=== PATIENT | male | born 1990 ===

== ENCOUNTER 2016-12-23 12:50 | Emergency (ER) | payer OTHER ==
[2016-12-23 13:03] VITALS: TEMP 98.2
[2016-12-23 13:08] VITALS: BMI 28.7
[2016-12-23] MEDS ORDERED: Morphine 2 mg/ml ISec IVP STA (13:35)
[2016-12-23] MEDS ORDERED: Sodium Chloride 0.9% 1,000 ML IV STA (13:35)
[2016-12-23] MEDS ORDERED: Iohexol 240 (50 ml) ONE (13:40)
--- NOTE | 2016-12-23 13:54 | ED PDOC ---
Arrival/HPI - General Chief Complaint: Abdominal Pain Time Seen by Provider: 12/23/16 13:04 Historian: Patient - History of Present Illness Narrative History of Present Illness (Text): 12/23/16 13:04 Jarek Hernandez is a 26 year old male complaining of epigastric abdominal pain since last night. Patient states that he also experiences associated nausea. Patient denies any diarrhea, constipation, urinary symptoms, or any other complaint at this time. Time/Duration: 24 hours Symptom Onset: Gradual Symptom Course: Unchanged Severity Level: Mild Activities at Onset: Light Context: Home Past Medical History - Provider Review Nursing Documentation Reviewed: Yes - Infectious Disease Hx of Infectious Diseases: None - Tetanus Immunization Tetanus Immunization: Unknown - Past Medical History Past Medical History: No Previous - Pulmonary Hx Bronchitis: Yes - Musculoskeletal/Rheumatological Hx Falls: No - Gastrointestinal Hx Gastritis: Yes - Psychiatric Hx Depression: No Hx Emotional Abuse: No Hx Physical Abuse: No Hx Substance Use: Yes - Past Surgical History Past Surgical History: No Previous - Anesthesia Hx Anesthesia: No - Suicidal Assessment Feels Threatened In Home Enviroment: No Family/Social History - Physician Review Nursing Documentation Reviewed: Yes Family/Social History: No Known Family HX Smoking Status: Light Smoker < 10 Cigarettes Daily Hx Alcohol Use: Yes Hx Substance Use: Yes Substance used: marijuana Hx Substance Use Treatment: Yes (DAILY) Allergies/Home Meds Allergies/Adverse Reactions: Allergies No Known Allergies Allergy (Verified 08/26/14 16:29) Review of Systems - Review of Systems Constitutional: absent: Fevers, Night Sweats Eyes: absent: Vision Changes ENT: absent: Hearing Changes Respiratory: absent: SOB, Cough Cardiovascular: absent: Chest Pain Gastrointestinal: Abdominal Pain, Nausea Genitourinary Male: absent: Urinary Output Changes Musculoskeletal: absent: Back Pain, Neck Pain Skin: absent: Rash, Pruritis Neurological: absent: Headache, Dizziness Endocrine: absent: Polyuria Hemo/Lymphatic: absent: Easy Bleeding Psychiatric: absent: Depression Physical Exam Vital Signs Reviewed: Yes Vital Signs Temp Pulse Resp BP Pulse Ox 12/23/16 16:38 75 18 132/64 98 12/23/16 15:50 79 18 134/69 98 12/23/16 13:02 98.2 F 85 18 136/75 98 Temperature: Afebrile Blood Pressure: Normal Pulse: Regular Respiratory Rate: Normal Appearance: Positive for: Well-Appearing, Non-Toxic, Comfortable Pain Distress: None Mental Status: Positive for: Alert and Oriented X 3 - Systems Exam Head: Present: Atraumatic, Normocephalic Pupils: Present: PERRL Conjunctiva: Present: Normal Mouth: Present: Moist Mucous Membranes Pharnyx: Present: Normal. No: ERYTHEMA, EXUDATE Neck: Present: Normal Range of Motion Respiratory/Chest: Present: Clear to Auscultation, Good Air Exchange. No: Respiratory Distress, Accessory Muscle Use Cardiovascular: Present: Regular Rate and Rhythm, Normal S1, S2. No: Murmurs Abdomen: Present: Tenderness (tenderness to palpation to Right Quadrant ), Normal Bowel Sounds. No: Distention Back: Present: Normal Inspection Upper Extremity: Present: Normal Inspection. No: Cyanosis, Edema Lower Extremity: Present: Normal Inspection. No: Edema Neurological: Present: GCS=15, CN II-XII Intact, Speech Normal Skin: Present: Warm, Dry, Normal Color. No: Rashes Psychiatric: Present: Alert, Oriented x 3, Normal Insight, Normal Concentration Medical Decision Making ED Course and Treatment: 12/23/16 13:10 Impression: 26 year old male complaining of abdominal painPatien since last night. Differential Diagnosis include but are not limited to: Gastritis vs. Appendicitis vs. enteritis vs. less likely cholecystitis Plan: -- Abdomen and Pelvis CT with PO & IV Contrast -- Urinalysis -- Labs -- Bentyl, Pepcid, Morphine, and IV Fluids -- Reassess and disposition Prior Visits: Notes and results from previous visits were reviewed. Patient last seen in ED on 08/26/14 for dysuria for 2 days. Patient was discharged home. Progress Notes: 12/23/16 16:[address] with PO & IV Contrast: Creator : Pamela Sher MD FINDINGS: LOWER THORAX:No visible consolidation, pleural effusion, or pneumothorax. LIVER:Mild periportal edema. Hepatomegaly. GALLBLADDER AND BILE DUCTS:Unremarkable. PANCREAS:Unremarkable. SPLEEN:Unremarkable. ADRENALS:Unremarkable. KIDNEYS AND URETERS:The kidneys enhance symmetrically. No hydronephrosis or obstructing renal calculus. BLADDER:The urinary bladder appears unremarkable. REPRODUCTIVE:Unremarkable. APPENDIX:The appendix appears within normal limits of caliber. No secondary signs of acute appendicitis. BOWEL:The stomach is nondistended. The bowel loops appear within normal limits of caliber without evidence of intestinal obstruction. PERITONEUM:No significant free fluid. No definite free air. LYMPH NODES:No bulky lymphadenopathy identified. VASCULATURE:No aortic aneurysm. BONES:No acute osseous abnormality is detected. OTHER FINDINGS:None. IMPRESSION: Mild periportal edema. Hepatomegaly. The appendix appears within normal limits of caliber. No secondary signs of acute appendicitis. 12/23/16 17:44 Patient with noted history. Vitals and labs are unremarkable. CT findings with mild periportal edema with hepatomegaly but patient is nontender in the RUQ. Currently he says his pain is minimal and still has some mild nausea but overall feels much better. Exam now with nontender abdomen. Given periportal edema, patient with no evidence of infection, hepatitis, or cause for hepatic congestion, will have the patient follow up in the GI clinic and place on zantac. Ok for d/c and follow up in GI clinic. - Lab Interpretations Lab Results: 12/23/16 14:45 12/23/16 14:45 Lab Results 12/23/16 14:45: Sodium 133, Potassium 3.8, Chloride 100, Carbon Dioxide 30, Anion Gap 7 L, BUN 12, Creatinine 0.7, Est GFR ( Amer) > 60, Est GFR (Non -Af Amer) > 60, Random Glucose 80, Calcium 9.2, Total Bilirubin 0.6, AST 23, ALT 30, Alkaline Phosphatase 65, Total Protein 7.2, Albumin 4.1, Globulin 3.1, Albumin/Globulin Ratio 1.3, Lipase 50 12/23/16 14:45: Urine Color Yellow, Urine Appearance Clear, Urine pH 7.5, Ur Specific [place] 1.025, Urine Protein Negative, Urine Glucose (UA) Negative, Urine Ketones Negative, Urine Blood Negative, Urine Nitrate Negative, Urine Bilirubin Negative, Urine Urobilinogen 0.2, Ur Leukocyte Esterase Negative 12/23/16 14:45: PT 11.0, INR 1.02, APTT 31.2 H 12/23/16 14:45: WBC 6.7, RBC 4.40, Hgb 13.0 L, Hct 39.5 L, MCV 89.8, MCH 29.5, MCHC 32.9, RDW 12.5, Plt Count 198, MPV 10.8, Gran % 77.6 H, Lymph % (Auto) 10.3 L, [place] % (Auto) 11.0 H, Eos % (Auto) 1.0 L, Baso % (Auto) 0.1, Gran # 5.20 , Lymph # 0.7 L, [place] # 0.7 H, Eos # 0.1, Baso # 0.01 I have reviewed the lab results: Yes - RAD Interpretation Radiology Orders: 12/23/16 13:35 ABD PELVIS PO & IV CONTRAST [CT] Stat - Medication Orders Current Medication Orders: Discontinued Medications Dicyclomine HCl (Bentyl) 10 mg PO ONCE STA Stop: 12/23/16 13:36 Last Admin: 12/23/16 14:57 Dose: 10 mg Famotidine (Pepcid) 20 mg IVP STAT STA Stop: 12/23/16 13:36 Last Admin: 12/23/16 14:57 Dose: 20 mg Sodium Chloride (Sodium Chloride 0.9%) 1,000 mls @ 999 mls/hr IV .Q1H1M STA Stop: 12/23/16 14:35 Last Admin: 12/23/16 14:55 Dose: 999 mls/hr Iohexol (Omnipaque 240 (50 Ml)) Confirm Administered Dose 50 ml .ROUTE .STK-MED ONE Stop: 12/23/16 13:41 Iohexol (Omnipaque 350 100 Ml) Confirm Administered Dose 350 mg .ROUTE .STK-MED ONE Stop: 12/23/16 15:37 Morphine Sulfate (Morphine) 2 mg IVP STAT STA Stop: 12/23/16 13:36 Last Admin: 12/23/16 14:57 Dose: 2 mg - Scribe Statement The provider has reviewed the documentation as recorded by the Heike Hess Provider Scribe Attestation: All medical record entries made by the Helenibtucker were at my direction and personally dictated by me. I have reviewed the chart and agree that the record accurately reflects my personal performance of the history, physical exam, medical decision making, and the department course for this patient. I have also personally directed, reviewed, and agree with the discharge instructions and disposition. Disposition/Present on Arrival - Present on Arrival Any Indicators Present on Arrival: No History of DVT/PE: No History of Uncontrolled Diabetes: No Urinary Catheter: No History of Decub. Ulcer: No History Surgical Site Infection Following: None - Disposition Have Diagnosis and Disposition been Completed?: Yes Diagnosis: Abdominal pain Disposition: HOME/ ROUTINE Disposition Time: 17:50 Patient Plan: Discharge Condition: GOOD Discharge Instructions (ExitCare): Abdominal Pain (ED), Diet for Ulcers and Gastritis (ED) Additional Instructions: Given "periportal edema" on the CT scan, make sure you follow up in the GI clinic (see form given to you). Recommend bland diet with less caffeine intake adn less greasy/spicy food, and take the medication as prescribed. Follow up as noted. Return to the emergency department if any new concerning symptoms. Prescriptions: Ranitidine HCl [Zantac] 1 tab PO BID #30 tablet Referrals: formerly [facility] [Outside] - Follow up with primary [facility] [Outside] - Follow up with primary
[2016-12-23 14:58] LABS: ADD MANUAL DIFF? NO
[2016-12-23 15:07] LABS: PH,URINE 7.5 (4.7-8.0); URINE BILIRUBIN NEGATIVE (NEGATIVE); URINE BLOOD NEGATIVE (NEGATIVE); URINE GLUCOSE (UA) NEGATIVE (NEGATIVE); URINE KETONE NEGATIVE (NEGATIVE); URINE LEUKOCYTE ESTERASE NEGATIVE Leu/uL (NEGATIVE); URINE PROTEIN NEGATIVE mg/dL (<30 mg/dL); URINE UROBILINOGEN 0.2 E.U./dL (<1 E.U./dL)
[2016-12-23 15:18] LABS: ALB/GLOB RATIO 1.3 (1.1-1.8); ALKALINE PHOSPHATASE 65 U/L (38-133); ALT/SGPT 30 U/L (7-56); AST/SGOT 23 U/L (15-59); BILIRUBIN,TOTAL 0.6 mg/dL (0.2-1.3); BLOOD UREA NITROGEN 12 mg/dL (7-21); CALCIUM 9.2 mg/dL (8.4-10.5); CARBON DIOXIDE 30 mmol/L (21-33); CHLORIDE 100 mmol/L (98-107); GFR AFRICAN-AMERICAN > 60; GLUCOSE,RANDOM 80 mg/dL (70-110); LIPASE 50 U/L (23-300); POTASSIUM 3.8 mmol/L (3.6-5.0); SODIUM 133 mmol/L (132-148); TOTAL PROTEIN 7.2 g/dL (5.8-8.3); URINE APPEARANCE CLEAR (CLEAR); URINE COLOR YELLOW (YELLOW)
[2016-12-23 15:26] LABS: INR 1.02 (0.93-1.08); PARTIAL THROMBOPLASTIN TIME 31.2 Seconds (23.7-30.8)
[2016-12-23] MEDS ORDERED: Iohexol 350 MG/100 ML VIAL ONE (15:36)
[2016-12-23 16:12] LABS: HEMATOCRIT 39.5 % (42.0-52.0); MEAN CELL VOLUME 89.8 fL (80.0-105.0); WHITE BLOOD COUNT 6.7 10^3/ul (4.5-11.0)
[2016-12-23 16:13] LABS: BASO # 0.01 K/mm3 (0.0-2.0); BASO % 0.1 % (0.0-3.0); EOS # 0.1 (0.0-0.7); GRAN % 77.6 % (50.0-68.0); LYMPH # 0.7 (1.2-3.4); LYMPH % 10.3 % (22.0-35.0); MEAN CORPUSCULAR HEMOGLOBIN 29.5 pg (25.0-35.0); MEAN CORPUSCULAR HGB CONC 32.9 g/dl (31.0-37.0); MEAN PLATELET VOLUME 10.8 fl (7.0-11.0); MONO # 0.7 (0.1-0.6); PLATELET COUNT 198 10^3/uL (120.0-450.0); RED CELL DISTRIBUTION WIDTH 12.5 % (11.5-14.5)
--- NOTE | 2016-12-23 16:35 | CT ---
PROCEDURE: CT Abdomen and Pelvis with oral and IV contrast. HISTORY: abd pain - ttp RLQ COMPARISON: CT abdomen and pelvis with contrast performed 04/25/13 TECHNIQUE: Contiguous axial images of the abdomen and pelvis. Oral and IV contrast was administered. Coronal and Sagittal reformats generated and reviewed. Contrast dose: 100 mL Omnipaque 350 Radiation dose: Total exam DLP = 863.62 MGy-cm. This CT exam was performed using one or more of the following dose reduction techniques: Automated exposure control, adjustment of the mA and/or kV according to patient size, and/or use of iterative reconstruction technique. FINDINGS: LOWER THORAX: No visible consolidation, pleural effusion, or pneumothorax. LIVER: Mild periportal edema. Hepatomegaly. GALLBLADDER AND BILE DUCTS: Unremarkable. PANCREAS: Unremarkable. SPLEEN: Unremarkable. ADRENALS: Unremarkable. KIDNEYS AND URETERS: The kidneys enhance symmetrically. No hydronephrosis or obstructing renal calculus. BLADDER: The urinary bladder appears unremarkable. REPRODUCTIVE: Unremarkable. APPENDIX: The appendix appears within normal limits of caliber. No secondary signs of acute appendicitis. BOWEL: The stomach is nondistended. The bowel loops appear within normal limits of caliber without evidence of intestinal obstruction. PERITONEUM: No significant free fluid. No definite free air. LYMPH NODES: No bulky lymphadenopathy identified. VASCULATURE: No aortic aneurysm. BONES: No acute osseous abnormality is detected. OTHER FINDINGS: None. IMPRESSION: Mild periportal edema. Hepatomegaly. The appendix appears within normal limits of caliber. No secondary signs of acute appendicitis.
[2016-12-23 18:33] VITALS: BP 140/59; PULSE 60; RESP 16; O2SAT 100
== END 2016-12-23 18:33 | disposition home or self-care (01) ==
LOC: ED 12:50
DX: R10.9 Unspecified abdominal pain (principal)
CPT/HCPCS: 74177; 80053; 81003; 83690; 85025; 85610; 85730; 96374; 96375; 99284; J2270; J2405; J7040; Q9966; Q9967

== ENCOUNTER 2018-08-30 10:56 | Emergency (ER) | payer MEDICAID, OTHER ==
[2018-08-30 11:25] VITALS: RESP 18; TEMP 98.2; O2SAT 100
[2018-08-30] MEDS ORDERED: Sodium Chloride 0.9% 1,000 ML IV STA (11:31)
[2018-08-30] MEDS ORDERED: Iohexol 240 (50 ml) ONE (12:11)
[2018-08-30 12:26] LABS: BASO # 0.02 K/mm3 (0.0-2.0); BASO % 0.2 % (0.0-3.0); EOS % 0.2 % (1.5-5.0); HEMOGLOBIN 12.6 g/dL (14.0-18.0); LYMPH # 0.7 (1.2-3.4); LYMPH % 6.1 % (22.0-35.0); MEAN CORPUSCULAR HEMOGLOBIN 29.4 pg (25.0-35.0); MEAN CORPUSCULAR HGB CONC 32.7 g/dl (31.0-37.0); MEAN PLATELET VOLUME 10.9 fl (7.0-11.0); MONO # 0.6 (0.1-0.6); MONO % 5.4 % (1.0-6.0); RBC 4.28 10^6/uL (3.5-6.1); RED CELL DISTRIBUTION WIDTH 12.9 % (11.5-14.5)
[2018-08-30 12:36] LABS: INR 1.07; PARTIAL THROMBOPLASTIN TIME 32.5 Seconds (26.9-38.3); PROTHROMBIN TIME 12.1 SECONDS (9.4-12.5)
[2018-08-30 12:52] LABS: URINE BILIRUBIN NEGATIVE (NEGATIVE); URINE BLOOD LARGE (NEGATIVE); URINE GLUCOSE (UA) NEGATIVE (NEGATIVE); URINE LEUKOCYTE ESTERASE NEGATIVE Leu/uL (NEGATIVE); URINE PROTEIN NEGATIVE mg/dL (<30 mg/dL); URINE UROBILINOGEN 0.2 E.U./dL (<1 E.U./dL)
[2018-08-30 12:53] LABS: URINE APPEARANCE SLIGHT-CLOUDY (CLEAR); URINE COLOR YELLOW (YELLOW)
[2018-08-30 12:58] LABS: URINE RBC 20 - 25 /hpf (0-2); URINE WBC 0 - 2 /hpf (0-6)
[2018-08-30 12:59] LABS: URINE BACTERIA MOD /hpf
--- NOTE | 2018-08-30 12:59 | ED PDOC ---
Arrival/HPI - General Chief Complaint: Back Pain Time Seen by Provider: 08/30/18 11:19 Historian: Patient - History of Present Illness Narrative History of Present Illness (Text): 08/30/18 11:31 27 year old male, with no significant past medical history, presents to the Ed for evaluation of abdominal pain associated with nausea and vomiting since this morning. Patient describes generalized crampy abdominal pain mostly localized to right lower quadrant with some radiation to right flank. Patient informs 4 episodes of non-bloody and non-bilious emesis associated with decreased PO intake since today. Patient informs taking Zantac at home with no improvement to symptoms. Patient denies any recent changes in diet. Patient denies any recent travel or sick contact. Patient denies taking the flu shot this season. Of note, patient recently had arthroscopy done to left ankle and is currently walking with crutches and taking percocet and muscle relaxers at home, with last dose yesterday. Patient denies any other associated somatic complaints. Patient denies any fevers, chills, headache, dizziness, chest pain, shortness of breath, dyspnea on exertion, cough, diarrhea, urinary symptoms, neck pain, testicular pain, penile discharge, or any other complaints. Time/Duration: 4-6 hours Symptom Onset: Gradual Symptom Course: Unchanged Activities at Onset: Light Context: Home Past Medical History - Provider Review Nursing Documentation Reviewed: Yes - Infectious Disease Hx of Infectious Diseases: None - Tetanus Immunization Tetanus Immunization: Unknown - Past Medical History Past Medical History: No Previous - Pulmonary Hx Bronchitis: Yes - Musculoskeletal/Rheumatological Hx Falls: No - Gastrointestinal Hx Gastritis: Yes - Psychiatric Hx Substance Use: Yes - Past Surgical History Past Surgical History: No Previous - Anesthesia Hx Anesthesia: No - Suicidal Assessment Feels Threatened In Home Enviroment: No Family/Social History - Physician Review Nursing Documentation Reviewed: Yes Family/Social History: No Known Family HX Smoking Status: Light Smoker < 10 Cigarettes Daily Hx Alcohol Use: Yes Hx Substance Use: Yes Substance used: marijuana Hx Substance Use Treatment: Yes (DAILY) Allergies/Home Meds Allergies/Adverse Reactions: Allergies No Known Allergies Allergy (Verified 08/30/18 13:15) Home Medications: Home Meds Medication Instructions Recorded Confirmed Ibuprofen [Motrin Tab] 1 tab PO DAILY 08/30/18 08/30/18 oxyCODONE/Acetaminophen [Percocet 1 tab PO PRN PRN 08/30/18 08/30/18 5/325 mg Tab] Review of Systems - Physician Review All systems were reviewed & negative as marked: Yes - Review of Systems Constitutional: absent: Fevers Respiratory: absent: SOB, Cough Cardiovascular: absent: Chest Pain Gastrointestinal: Abdominal Pain, Nausea, Vomiting. absent: Diarrhea Genitourinary Male: absent: Dysuria, Frequency, Urinary Output Changes Musculoskeletal: Back Pain. absent: Neck Pain Skin: absent: Rash Neurological: absent: Headache, Dizziness Psychiatric: absent: Anxiety Physical Exam Vital Signs Reviewed: Yes Vital Signs Temp Pulse Resp BP Pulse Ox 08/30/18 11:24 98.2 F 64 18 116/79 100 Temperature: Afebrile Blood Pressure: Normal Pulse: Regular Respiratory Rate: Normal Appearance: Positive for: Well-Appearing, Non-Toxic, Comfortable Pain Distress: None Mental Status: Positive for: Alert and Oriented X 3 - Systems Exam Head: Present: Atraumatic, Normocephalic Pupils: Present: PERRL Extroacular Muscles: Present: EOMI Conjunctiva: Present: Normal Mouth: Present: Moist Mucous Membranes Neck: Present: Normal Range of Motion Respiratory/Chest: Present: Clear to Auscultation, Good Air Exchange. No: Respiratory Distress, Accessory Muscle Use Cardiovascular: Present: Regular Rate and Rhythm, Normal S1, S2. No: Murmurs Abdomen: Present: Tenderness (Generalized abdominal tenderness worse at right lower quadrant). No: Distention, Peritoneal Signs Back: Present: CVA Tenderness (right sided CVA tenderness) Upper Extremity: Present: Normal Inspection, Normal ROM, NORMAL PULSES, Neurovascularly Intact, Capillary Refill < 2s. No: Cyanosis, Edema, Temperature Abnormalties Lower Extremity: Present: Normal Inspection, NORMAL PULSES, Normal ROM, Neurovascularly Intact, Capillary Refill < 2 s. No: Edema, Temperature Abno rmalties Neurological: Present: GCS=15, CN II-XII Intact, Speech Normal, Motor Func Grossly Intact, Normal Sensory Function, Gait Normal Skin: Present: Warm, Dry, Normal Color. No: Rashes Lymphatic: No: Cervical Adenopathy Psychiatric: Present: Alert, Oriented x 3, Normal Insight, Normal Concentration. No: Normal Affect, Normal Mood Medical Decision Making ED Course and Treatment: 08/30/18 11:31 Initial Plan: * CT of Abdomen/Pelvis * Labs * Pepcid * Zofran * Toradol * IV Fluids * Urinalysis * Reassess and Disposition Labwork significant for mild leukocytosis at 12, otherwise unremarkable UA shows blood CT shows terminal ileitis and bladder stone CXR negative for active disease Patient reports resolution of pain with medications. Advised to followup with urology, GI, and PMD. Pt verbalizes understanding and states he will followup as directed. Diagnostic testing results reviewed with Dr. Damian who agrees with plan of c are and disposition. Diagnostic testing results and plan of care discussed with patient. Strict ins tructions given regarding prescription use, importance of followup, and signs/symptoms to return to ER including worsening pain, chest pain, dizziness, SOB, or any other new/worsening symptoms. Pt verbalized understanding of discussion. Patient is A&Ox3, ambulating with steady gait, with vital signs stable for discharge. - Lab Interpretations Lab Results: PT 12.1 SECONDS (9.4-12.5) 08/30/18 12:10 INR 1.07 08/30/18 12:10 APTT 32.5 Seconds (26.9-38.3) 08/30/18 12:10 Urine Color Yellow (YELLOW) 08/30/18 12:15 Urine Appearance Slight-cloudy (CLEAR) 08/30/18 12:15 Urine pH 7.0 (4.7-8.0) 08/30/18 12:15 Ur Specific [place] 1.020 (1.005-1.035) 08/30/18 12:15 Urine Protein Negative mg/dL (<30 mg/dL) 08/30/18 12:15 Urine Glucose (UA) Negative mg/dL (NEGATIVE) 08/30/18 12:15 Urine Ketones Negative mg/dL (NEGATIVE) 08/30/18 12:15 Urine Blood Large (NEGATIVE) H 08/30/18 12:15 Urine Nitrate Negative (NEGATIVE) 08/30/18 12:15 Urine Bilirubin Negative (NEGATIVE) 08/30/18 12:15 Urine Urobilinogen 0.2 E.U./dL (<1 E.U./dL) 08/30/18 12:15 Ur Leukocyte Esterase Negative Maggie/uL (NEGATIVE) 08/30/18 12:15 08/30/18 12:10 08/30/18 13:53 Lab Results 08/30/18 13:53: Sodium 139, Potassium 4.3, Chloride 105, Carbon Dioxide 27, Anion Gap 12, BUN 15, Creatinine 0.6 L, Est GFR ( Amer) > 60, Est GFR (Non-Af Amer) > 60, Random Glucose 95, Calcium 9.1, Magnesium 1.9, Total Bilirub in 0.3, AST 19, ALT 27, Alkaline Phosphatase 66, Total Protein 7.3, Albumin 4.2, Globulin 3.1, Albumin/Globulin Ratio 1.4, Lipase 75 08/30/18 12:15: Urine Color Yellow, Urine Appearance Slight-cloudy, Urine pH 7.0, Ur Specific [place] 1.020, Urine Protein Negative, Urine Glucose (UA) Negative, Urine Ketones Negative, Urine Blood Large H, Urine Nitrate Negative, Urine Bilirubin Negative, Urine Urobilinogen 0.2, Ur Leukocyte Esterase Negative, Urine RBC 20 - 25 H, Urine WBC 0 - 2, Ur Epithelial Cells None, Urine Bacteria Mod 08/30/18 12:10: PT 12.1, INR 1.07, APTT 32.5 08/30/18 12:10: WBC 12.0 H, RBC 4.28, Hgb 12.6 L, Hct 38.5 L, MCV 90.0, MCH 29.4, MCHC 32.7, RDW 12.9, Plt Count 239, MPV 10.9, Neut % (Auto) 88.1 H, Lymph % (Auto) 6.1 L, [place] % (Auto) 5.4, Eos % (Auto) 0.2 L, Baso % (Auto) 0.2, Lymph # (Auto) 0.7 L, [place] # (Auto) 0.6, Eos # (Auto) 0.0, Baso # (Auto) 0.02, Absolute Neuts (auto) 10.55 H I have reviewed the lab results: Yes - RAD Interpretation Narrative RAD Interpretations (Text): 08/30/18 15:51 Chest X-ray reviewed by radiologist, shows: FINDINGS: LUNGS: Minor bibasilar atelectasis. PLEURA: No significant pleural effusion identified, no pneumothorax apparent. CARDIOVASCULAR: No aortic atherosclerotic calcification present. Normal cardiac size. No pulmonary vascular congestion. OSSEOUS STRUCTURES: No significant abnormalities. VISUALIZED UPPER ABDOMEN: Normal. OTHER FINDINGS: None. IMPRESSION: Minor bibasilar atelectasis. CT of Abdomen/Pelvis reviewed by radiologist, shows: FINDINGS: LOWER THORAX: Unremarkable. LIVER: Liver appears upper limits normal size. Limited periportal edema is appreciate throughout the liver which is a nonspecific finding, less apparent than previously shown. No discrete hepatic mass identified with liver normal size overall. GALLBLADDER AND BILE DUCTS: Unremarkable. PANCREAS: Unremarkable. No gross lesion or ductal dilatation. SPLEEN: Unremarkable. ADRENALS: Unremarkable. No mass. KIDNEYS AND URETERS: Unremarkable. No hydronephrosis. No solid mass. VASCULATURE: Unremarkable. No aortic aneurysm. No aortic atherosclerotic calcification or mural plaque present. BOWEL: Opacified large bowel is unremarkable diffusely including the cecum. Thickening of the terminal ileum may indicate ileitis. Clinically correlate further. No bowel obstruction, perienteric or pericolic edema there is limited matter retained fecal material within the colon. APPENDIX: Normal appendix. PERITONEUM: No free intra peritoneal gas collection. Trace fluid is noted in the pelvis. LYMPH NODES: Unremarkable. No enlarged lymph nodes. BLADDER: Unremarkable. REPRODUCTIVE: There is a small 2 mm calcification identified at the dependent urinary bladder BONES: No acute fracture. OTHER FINDINGS: None. IMPRESSION: 1. No CT evidence of appendicitis in the interval. A stable normal appearing appendix identified. 2. Potential terminal ileitis in the interval. Trace fluid is noted in the pelvis. Remaining bowel is unremarkable as imaged. Clinically correlate further. 3. Limited periportal edema though less apparent than previously identified in prior CT 12/23/2016. Liver appears upper limits normal size. 4. 2 mm calculus identified in the dependent urinary bladder. No obstructive uropathy appreciated bilaterally nevertheless, or it sequelae at either kidney. Radiology Orders: 08/30/18 11:31 ABD PELVIS PO & IV CONTRAST [CT] Stat Wrapper Hands Sprayer: Radiologist - Medication Orders Current Medication Orders: Discontinued Medications Famotidine (Pepcid) 20 mg IVP STAT STA Stop: 08/30/18 11:32 Last Admin: 08/30/18 12:11 Dose: 20 mg IVP Administration Document 08/30/18 12:11 OCS (Rec: 08/30/18 12:11 OCS [id number]) Charges for Administration # of IVP Administrations 1 Sodium Chloride (Sodium Chloride 0.9%) 1,000 mls @ 1,000 mls/hr IV .Q1H STA Stop: 08/30/18 12:30 Last Admin: 08/30/18 12:11 Dose: 1,000 mls/hr eMAR Start Stop Document 08/30/18 12:11 OCS (Rec: 08/30/18 12:12 OCS [id number]) Intravenous Solution Start Date 08/30/18 Start Time 12:11 End Date 08/30/18 End time 13:11 Total Infusion Time 60 Ketorolac Tromethamine (Toradol) 30 mg IVP STAT STA Stop: 08/30/18 11:32 Last Admin: 08/30/18 12:12 Dose: 30 mg MAR Pain Assessment Document 08/30/18 12:12 OCS (Rec: 08/30/18 12:12 OCS [id number]) Pain Reassessment Is this a pain reassessment? No Sleep Is patient sleeping during reassessment? No Presence of Pain Presence of Pain Yes Pain Scale Used Protocol: PSCALES Pain Scale Used Numeric Location Left, Right or Bilateral Right Upper or Lower Lower Pain Location Body Site Back Description Description Constant Intensity of Pain at present 9 Pain Behavior Irritability Rubbing Site Facial Grimacing Aggravating Factors ADL's IVP Administration Document 08/30/18 12:12 OCS (Rec: 08/30/18 12:12 [id number] Charges for Administration # of IVP Administrations 1 Ondansetron HCl (Zofran Inj) 4 mg IVP STAT STA Stop: 08/30/18 11:32 Last Admin: 08/30/18 12:12 Dose: 4 mg IVP Administration Document 08/30/18 12:12 OCS (Rec: 08/30/18 12:12 OCS [id number]) Charges for Administration # of IVP Administrations 1 - PA / BOX CAR BRACER / Resident Statement / has reviewed & agrees with the documentation as recorded. / has examined the patient and agrees with the treatment plan. - Scribe Statement The provider has reviewed the documentation as recorded by the Scribe Tone Crystal. All medical record entries made by the Helenibe were at my direction and personally dictated by me. I have reviewed the chart and agree that the record accurately reflects my personal performance of the history, physical exam, medical decision making, and the department course for this patient. I have also personally directed, reviewed, and agree with the discharge instructions and disposition. Disposition/Present on Arrival - Present on Arrival Any Indicators Present on Arrival: No History of DVT/PE: No History of Uncontrolled Diabetes: No Urinary Catheter: No History of Decub. Ulcer: No History Surgical Site Infection Following: None - Disposition Have Diagnosis and Disposition been Completed?: Yes Diagnosis: Gastroenteritis, Bladder stone Disposition: HOME/ ROUTINE Disposition Time: 15:45 Patient Plan: Discharge Condition: IMPROVED Discharge Instructions (ExitCare): Gastroenteritis (ED) Additional Instructions: Increase fluids Pepcid every 12 hours as needed Ibuprofen/Tylenol for pain Followup with primary doctor within 2 days Followup with GI within 2 days Followup with urology within 2 days Return to ER with any new/worsening symptoms Prescriptions: Famotidine [Pepcid] 20 mg PO Q12H #14 tab [place] [facility] [place] - Follow up with primary Ramesh Lin MD [Staff Provider] - Follow up with primary Halima Todd MD [Medical Doctor] - Follow up with primary Dean Freeman DO [Staff Provider] - Follow up with primary Forms: [facility] (Romanian), WORK NOTE
[2018-08-30 14:10] LABS: ALB/GLOB RATIO 1.4 (1.1-1.8); ALBUMIN 4.2 g/dL (3.0-4.8); ALT/SGPT 27 U/L (7-56); AST/SGOT 19 U/L (17-59); BLOOD UREA NITROGEN 15 mg/dL (7-21); CALCIUM 9.1 mg/dL (8.4-10.5); GFR NON-AFRICAN AMERICAN > 60; LIPASE 75 U/L (23-300)
[2018-08-30] MEDS ORDERED: Iohexol 350 MG/100 ML VIAL ONE (14:27)
[2018-08-30 14:31] VITALS: BP 120/88; PULSE 59
--- NOTE | 2018-08-30 15:06 | CT ---
Date of service: 08/30/2018 PROCEDURE: CT Abdomen and Pelvis with contrast HISTORY: rule out appendicitis COMPARISON: Abdomen and pelvis CT with contrast 12/23/2016. TECHNIQUE: Following oral and intravenous contrast administration, a CT examination of the abdomen and pelvis was performed from the domes of the diaphragms to the symphysis pubis with reformatted datasets provided not only axial but also sagittal and coronal series. Contrast dose: Omnipaque 350, 100 cc Radiation dose: Total exam DLP = 832.52 mGy-cm. This CT exam was performed using one or more of the following dose reduction techniques: Automated exposure control, adjustment of the mA and/or kV according to patient size, and/or use of iterative reconstruction technique. FINDINGS: LOWER THORAX: Unremarkable. LIVER: Liver appears upper limits normal size. Limited periportal edema is appreciate throughout the liver which is a nonspecific finding, less apparent than previously shown. No discrete hepatic mass identified with liver normal size overall. GALLBLADDER AND BILE DUCTS: Unremarkable. PANCREAS: Unremarkable. No gross lesion or ductal dilatation. SPLEEN: Unremarkable. ADRENALS: Unremarkable. No mass. KIDNEYS AND URETERS: Unremarkable. No hydronephrosis. No solid mass. VASCULATURE: Unremarkable. No aortic aneurysm. No aortic atherosclerotic calcification or mural plaque present. BOWEL: Opacified large bowel is unremarkable diffusely including the cecum. Thickening of the terminal ileum may indicate ileitis. Clinically correlate further. No bowel obstruction, perienteric or pericolic edema there is limited matter retained fecal material within the colon. APPENDIX: Normal appendix. PERITONEUM: No free intra peritoneal gas collection. Trace fluid is noted in the pelvis. LYMPH NODES: Unremarkable. No enlarged lymph nodes. BLADDER: Unremarkable. REPRODUCTIVE: There is a small 2 mm calcification identified at the dependent urinary bladder BONES: No acute fracture. OTHER FINDINGS: None. IMPRESSION: 1. No CT evidence of appendicitis in the interval. A stable normal appearing appendix identified. 2. Potential terminal ileitis in the interval. Trace fluid is noted in the pelvis. Remaining bowel is unremarkable as imaged. Clinically correlate further. 3. Limited periportal edema though less apparent than previously identified in prior CT 12/23/2016. Liver appears upper limits normal size. 4. 2 mm calculus identified in the dependent urinary bladder. No obstructive uropathy appreciated bilaterally nevertheless, or it sequelae at either kidney.
--- NOTE | 2018-08-30 15:17 | RAD ---
Date of service: 08/30/2018 HISTORY: Abdominal pain COMPARISON: No prior. FINDINGS: LUNGS: Minor bibasilar atelectasis. PLEURA: No significant pleural effusion identified, no pneumothorax apparent. CARDIOVASCULAR: No aortic atherosclerotic calcification present. Normal cardiac size. No pulmonary vascular congestion. OSSEOUS STRUCTURES: No significant abnormalities. VISUALIZED UPPER ABDOMEN: Normal. OTHER FINDINGS: None. IMPRESSION: Minor bibasilar atelectasis.
== END 2018-08-30 16:12 | disposition home or self-care (01) ==
LOC: ED 10:56
DX: K52.9 Noninfective gastroenteritis and colitis, unspecified (principal); N21.0 Calculus in bladder; F17.210 Nicotine dependence, cigarettes, uncomplicated
CPT/HCPCS: 71045; 74177; 80053; 81001; 83690; 83735; 85025; 85610; 85730; 87086; 96361; 96374; 96375; 99283; J1885; J2405; J7030; Q9966; Q9967